=== PATIENT | female | born 1960 | race Caucasian/White ===

== ENCOUNTER 2021-05-22 14:14 | Outpatient (CLI) | payer OTHER, SELFPAY ==
[2021-05-22 14:39] VITALS: BP 113/47; PULSE 58; RESP 16; TEMP 36.6; O2SAT 99; BMI 27.8
[2021-05-22] MEDS: 0.9% Saline Lock 10 ML Syringe IV (14:42)
[2021-05-22 15:49] VITALS: BP 105/63; PULSE 66; RESP 18; TEMP 36.6; O2SAT 97
[2021-05-22 16:29] VITALS: BP 104/55; PULSE 64; RESP 16; TEMP 36.4; O2SAT 98
== END 2021-05-22 16:49 | disposition home or self-care (01) ==
LOC: MS3OUT 14:15 → MS3 14:15
PROVIDERS: PCP Family Medicine; Referring Provider Nurse Practitioner Adult Health; Visit Provider Nurse Practitioner Adult Health
DX: Z23 Encounter for immunization (principal); U07.1 COVID-19
CPT/HCPCS: J7050; M0243; A4216; Q0244

== ENCOUNTER 2021-05-27 10:36 | Emergency (ER) | payer OTHER, SELFPAY ==
[2021-05-27 10:38] VITALS: BP 129/92; PULSE 72; RESP 16; TEMP 36.5; O2SAT 97; BMI 28.7
--- NOTE | 2021-05-27 10:56 | CT_ITS ---
STUDY: CT BRAIN WITHOUT CONTRAST REASON FOR EXAM: Female, 60 years old. Headache and day 12 of Covid infection RADIATION DOSAGE (If Supplied By Facility): CTDIvol = ( 44.99 ) mGy, DLP = ( 745.49 ) mGycm TECHNIQUE: Transaxial CT imaging of the brain was performed without administration of intravenous contrast material. Individualized dose optimization techniques were used for this CT. COMPARISON: No relevant priors. FINDINGS: Brain parenchyma is without focal lesions, mass effect, acute intracranial hemorrhage, extra parenchymal fluid collections, hydrocephalus or herniation. The skull is intact. CT/Brain/Head without Contrast IMPRESSION: 1. Normal CT brain. Electronically Signed: Deepthi Enamorado MD at 11:32 EST Tel , Service support ,
--- NOTE | 2021-05-27 11:00 | EDS_ITS ---
HPI History of Present Illness Chief Complaint: Headache Informant: patient Onset/Context/Timing Onset: Days (5) Context: Gradual Timing: Continuous Quality -Headache: Positive for Similar Prior Headaches and Sharp Location: Right occipital parietal area Worsened by: Nothing Relieved by: Nothing Associated Symptoms/Injury Associated Symptoms: Negative for Fever, Nausea, Vomiting, Sore Throat, Sinus Pressure, Numbness, Tingling, Preceding Aura, Visual Changes, Blurred Vision, Photophobia and Visual Loss Injury - SOTMOAYOR: Negative for Direct Trauma Narrative Narrative: Patient presents with headache that has been constant for the past 5 days. Patient states the pain is of the right side of her head. Patient states she had monoclonal antibody infusion 6 days ago. Patient states her pain has gradually been getting worse. Patient went to urgent care today and was referred to the emergency department. Patient denies any nausea or vomiting. Patient denies any fevers or chills. Patient denies any sore throat or sinus pressure. Patient denies any photophobia. Patient denies any visual changes or scotoma. Patient states the pain feels similar to pain she had with cluster headaches years ago. [facility] Medical History (Updated 05/27/21 @ 12:[address] Dale Tripp DO) COPD (chronic obstructive pulmonary disease) Hypothyroid Home Medications albuterol 180 mcg INHALATION Q6H PRN 05/22/21 [History Last Taken Unknown] albuterol sulfate 1.25 mg INHALATION Q4H 05/22/21 [History Last Taken Unknown] atorvastatin 10 mg PO QHS 05/22/21 [History Last Taken Unknown] budesonide-formoterol [Symbicort] 2 puff INHALATION BID 05/22/21 [History Last Taken Unknown] famotidine 20 mg PO QHS PRN 05/22/21 [History Last Taken Unknown] levothyroxine 50 mcg PO DAILY 05/22/21 [History Last Taken Unknown] sertraline [Zoloft] 100 mg PO DAILY 05/22/21 [History Last Taken Unknown] trazodone 50 mg PO QHS PRN 05/22/21 [History Last Taken Unknown] Allergy/AdvReac Type Severity Reaction Status Date / Time No Known Allergies Allergy Verified 05/27/21 10:38 Surgical History History of reversal of tubal ligation Hx of tubal ligation Social History Smoking Status: Current every day smoker tobacco type: cigarettes ROS ROS ED Constitutional Constitutional ED: Denies chills or fever(s) Eyes Eyes: Denies blurry vision or change in vision ENT ENT ED: Reports rhinorrhea; Denies sore throat Cardiovascular Cardiovascular: Denies chest pain or palpitations Respiratory/Chest Respiratory/Chest: Reports cough; Denies dyspnea Gastrointestinal Gastrointestinal: Denies nausea or vomiting Genitourinary Genitourinary ED: Denies dysuria or hematuria Musculoskeletal Musculoskeletal: Denies back pain or neck pain Integumentary Denies abscess or rash Neurologic Neurologic: Reports headache(s); Denies weakness Allergic/Immunologic Allergic/Immunologic ED: Denies mouth swelling or urticaria EXAM Physical Exam Const Vital Signs: 05/27/21 10:38 05/27/21 11:10 Temperature 97.7 F L Temperature Source Temporal Pulse Rate 72 Respiratory Rate 16 Blood Pressure 129/92 H Blood Pressure Mean 104 Pulse Ox 97 99 Oxygen Delivery Method Room Air Room Air Positive well nourished and well developed General Appearance ED: well developed HEENT Reports moist mucous membranes Neck supple and no JVD Resp normal respiratory effort and clear to auscultation bilaterally Cardio regular rate, regular rhythm and no murmurs GI normal to inspection, nondistended, normoactive bowel sounds and non-tender Palpation: soft Extremity normal to inspection General Extremety ED: Negative for edema or tenderness General Extremity: Negative for edema Neuro oriented x3, CN's II-XII intact bilaterally and no sensory deficits noted Sensorium / Orientation: awake and alert Motor Exam: strength 5/5 throughout Psych mental status grossly normal Skin no rashes or lesions noted MDM MDM MDM Narrative Medical decision making narrative: Patient was given IV fluids, Reglan, Benadryl, and Toradol. CT scan of the brain was obtained. There is no acute intracranial abnormality. Patient is feeling better on reevaluation. Patient states her headache is mild. Patient was instructed to rest in a dark quiet room. Patient was instructed to follow-up with her primary care physician in 5 to 7 days. Patient was instructed to continue ibuprofen and Tylenol as needed for pain. Patient understood and was agreeable with the plan. All questions were answered. Radiography Diagnostic Testing: Clinical Impression(s) from Imaging Studies Brain CT 12/19/21 10:56 IMPRESSION: 1. Normal CT brain. Electronically Signed: Deepthi Enamorado MD at 11:32 EST Tel , Service support , Discharge Plan Triage Chief Complaint: Headache ED Provider: Dale Tripp Dx/Rx/DC Orders Clinical Impression: Headache Instructions: ED Headache Unspecified Prescriptions: No Action atorvastatin 10 mg Tablet 10 mg PO QHS RF: 0 albuterol sulfate 1.25 mg/3 mL Solution For Nebulization 1.25 mg INHALATION Q4H RF: 0 sertraline [Zoloft] 100 mg Tablet 100 mg PO DAILY RF: 0 famotidine 20 mg Tablet 20 mg PO QHS PRN (Reason: gerd) RF: 0 levothyroxine 50 mcg Tablet 50 mcg PO DAILY RF: 0 albuterol 90 mcg/actuation Aerosol 180 mcg inhalation Q6H PRN (Reason: sob) RF: 0 budesonide-formoterol [Symbicort] 160-4.5 mcg/actuation Hfa Aerosol Inhaler 2 puff INHALATION BID RF: 0 trazodone 50 mg Tablet 50 mg PO QHS PRN (Reason: Sleep) RF: 0 Primary Care Provider: Luis Angel Benjamin Referrals: Luis Angel Benjamin MD [Primary Care Provider] - 3-5 Days Disposition Disposition: Home, Self Care
[2021-05-27] MEDS: DiphenhydrAMINE 50 MG/ML Syringe 25 MG IV (11:08)
[2021-05-27] MEDS: Metoclopramide 10 MG/2 ML Vial IV (11:09)
[2021-05-27] MEDS: Ketorolac 15 MG/ML Vial IV (11:09)
[2021-05-27] MEDS: 0.9% Normal Saline 1,000 ML 999 ML IV (11:09)
[2021-05-27 11:10] VITALS: O2SAT 99
== END 2021-05-27 12:34 | disposition home or self-care (01) ==
PROVIDERS: Emergency Provider Emergency Medicine; PCP Family Medicine
DX: R51.9 Headache, unspecified (principal); E03.9 Hypothyroidism, unspecified; J44.9 Chronic obstructive pulmonary disease, unspecified; Z79.899 Other long term (current) drug therapy; F17.210 Nicotine dependence, cigarettes, uncomplicated
CPT/HCPCS: 70450; 96361; 96374; 96375; 99283; J7030; A4216